=== PATIENT | female | born 1960 | race Caucasian/White ===

== ENCOUNTER 2018-08-02 10:03 | Observation (INO) ==
[2018-08-02] MEDS ORDERED: Aspirin 81 MG TAB.CHEW PO ONE (10:17)
[2018-08-02] MEDS ORDERED: 0.9 % Sodium Chloride 500 ML IVC ONE (10:17)
--- NOTE | 2018-08-02 10:25 | Emergency Department Note ---
Disposition Clinical Impression: Chest pain Qualifiers: Chest pain type: unspecified Qualified Code(s): R07.9 - Chest pain, unspecified Disposition: Admitted As Inpatient Condition: Fair Forms: ED Satisfaction Letter Time of Disposition: 12:14 Chest Pain HPI - General Chief Complaint: ED Chest Pain Stated Complaint: CP Time Seen by Provider: 08/02/18 10:07 Source: EMS Mode of arrival: EMS Limitations: no limitations Vital Signs Reviewed: Yes Nursing Notes Reviewed: Yes - History of Present Illness HPI Narrative: Patient presents emergency room by EMS for evaluation of intermittent chest pain. Patient was seen at her PCPs office today and advised to come to the emergency room because of the chest pain. She has no specific cardiac history but does have elevated blood pressure and alcohol abuse. No other acute complaints or symptoms on arrival here. Pt complaint: chest pain Onset (ago): day(s) Duration: intermittent Onset: during rest Pain Location: substernal Severity scale (1-10): 0 Quality: tightness, heaviness Pain Radiation: none Improves with: nothing Worsens with: movement Treatments prior to arrival chest pain: aspirin - Related Data Home Medications Medication Instructions Recorded Confirmed ALPRAZolam [Xanax 0.5 MG Tablet] 0.25 - 0.5 mg PO BID PRN 01/19/18 01/19/18 Aspirin [Lo-Dose Aspirin EC] 81 mg PO DAILY 01/19/18 01/19/18 Metoprolol Succinate [Toprol Xl] 25 mg PO DAILY 01/19/18 01/19/18 Valsartan/Hydrochlorothiazide 1 tab PO DAILY 01/19/18 01/19/18 [Diovan Hct 320-25 mg Tablet] cloNIDine HCl [CloNIDine HCl] 0.1 mg PO BID PRN 01/19/18 01/19/18 Previous Rx's Medication Instructions Recorded OxyCODONE Immed Rel [Roxicodone 5 5 mg PO Q6HR PRN 7 Days #30 tablet 01/20/18 MG] Allergies Allergy/AdvReac Type Severity Reaction Status Date / Time No Known Allergies Allergy Verified 01/19/18 07:18 All systems ED: reviewed and negative except as stated. Review of Systems: As Per HPI Constitutional: Denies: fever, chills, weakness ENT ED: Denies: ear pain, congestion Cardiovascular: Reports: chest pain. Denies: palpitations, dyspnea on exertion, orthopnea, edema Respiratory: Denies: cough, dyspnea, wheezes, hemoptysis Gastrointestinal: Denies: abdominal pain, nausea, vomiting, diarrhea, constipa tion Chest Pain PMH - Past Medical History Medical history: Reports: hypertension Psychiatric history: Reports: anxiety, depression - Social History Smoking Status: Former smoker Alcohol use: Reports: heavy Drug use: Reports: none Physical Exam - General Limitations: no limitations General appearance: alert, in no apparent distress - ENT ENT exam: normal exam, normal oropharynx, mucous membranes moist - Neck Neck exam: Present: normal inspection, full ROM, trachea midline. Absent: tenderness - Chest Chest inspection: Present: normal inspection, symmetric chest wall rise. Absent: tenderness - Respiratory Respiratory exam: Present: normal lung sounds bilaterally. Absent: respiratory distress, accessory muscle use - Cardiovascular Cardiovascular exam: Present: regular rate, normal rhythm, normal heart sounds - Abdominal Exam Abdominal exam: Present: soft, Non-Tender. Absent: tenderness, distention, guarding, rebound, rigidity - Extremities Exam Extremities exam: Present: normal inspection, full ROM - Back Exam Back exam: Present: normal inspection, full ROM. Absent: tenderness, CVA tenderness (R), CVA tenderness (L) - Neurological Exam Neurological exam: Present: alert, oriented X3, CN II-XII intact, normal gait - Skin Skin exam: Present: warm, dry, intact, normal color Course Course Narrative: Patient seen and examined the time of arrival. See history of present illness. 57-year-old female presents from her primary care provider's office for evaluation of intermittent chest discomfort and pain. During her evaluation this morning the patient was having pain. She also had poorly controlled hypertension at that time. Patient had nonspecific T-wave abnormalities noted on her EKG in the provider recommended she come to the emergency room for evaluation. On arrival here to the emergency room, the patient is denying chest pain shortness of breath headache or vision change. She does not have any nausea vomiting or diarrhea. No fevers no chills. Denies any falls trauma or injury. She does have a history of smoking but has not smoked in several years. She does take alcohol daily. Denies any substance abuse. Currently denying any specific cardiac history. Vital signs in triage show a significantly elevated blood pressure. She did take her clonidine prior to coming in. Heart rate is normal. Respirations are easy and unlabored. Head is atraumatic. Oropharynx is patent. Trachea is midline. Lungs are clear heart is regular. Abdomen is soft nontender nondistended with no pulsatile masses or lesions. Extremities are normal with no signs of pitting edema or swelling. Patient is otherwise clinical stable. Cardiac evaluation will be established with EKG chest x-ray CBC chemistry and troponin. Patient will be provided with aspirin while here. Currently, she is asymptomatic and does not require any immediate intervention. She is advised that if her symptoms return or change she should let us know so we can complete a repeat EKG and evaluate. Patient is otherwise clinically stable. Family is with her at the bedside and understands the recommended treatment course and projected course of care. EKGs from the primary care provider's office were reviewed as well as repeat EKGs performed here in the emergency department. - Reevaluation(s) Reevaluation #1: Patient's troponin and EKG are otherwise unremarkable. EKG from the primary care provider's office as well as a previous EKG were reviewed and do not show any acute morphology changes or signs of myocardial infarction. Patient is go ing to accommodate an admission at this time for ACS evaluation rule out. Patient is comfortable this plan. The hospitalist and I reviewed the case at length. She does not need any other intervention outside of aspirin at this time. Patient is otherwise currently stable with no symptoms at this time. Patient will be admitted for observation symptomatically control. We will monitor here in the emergency department to the admission process is completed. Time: 12:13 Vital Signs Temperature 98.3 F 08/02/18 10:06 Pulse Rate 62 08/02/18 10:06 Respiratory Rate 18 08/02/18 10:06 Blood Pressure 206/79 08/02/18 10:06 O2 Sat by Pulse Oximetry 96 08/02/18 10:06 Temperature 98.3 F 08/02/18 10:06 Pulse Rate 62 08/02/18 10:06 Respiratory Rate 18 08/02/18 10:06 Blood Pressure 206/79 08/02/18 10:06 O2 Sat by Pulse Oximetry 96 08/02/18 10:06 Oxygen Delivery Oxygen Delivery Room Air Chest Pain - MDM Narrative Medical decision making narrative: Chest pain, acute coronary syndrome - Medical Records Medical records reviewed: Yes I reviewed the patient's medical records. - Lab Data Lab results reviewed: Yes I reviewed the patient's lab results. Result diagrams: 08/02/18 10:12 08/02/18 10:12 Lab Results 08/02/18 08/02/18 08/02/18 Range/Units 10:12 10:12 10:12 WBC 6.6 (4.3-11.1) K/mcL RBC 5.01 H (3.82-4.97) M/mcL Hgb 15.6 H (11.5-15.4) g/dL Hct 47.2 H (35.3-44.9) % MCV 94.2 (83.0-100.0) fL MCH 31.1 (28.0-33.3) pg MCHC 33.1 (31.6-35.5) g/dL RDW 13.0 (11.5-14.5) % Plt Count 293 (140-400) K/mcL MPV 9.4 (9.4-12.4) fL Immature Gran % 0.3 (0-4) % Seg Neutrophils % 60.4 % Lymphocytes % 27.6 % Monocytes % 9.1 % Eosinophils % 1.8 % Basophils % 0.8 % Neutrophils # 4.0 (1.6-8.9) K/mcL Lymphocytes # 1.8 (0.6-4.6) K/mcL Monocytes # 0.6 (0.0-1.3) K/mcL Eosinophils # 0.1 (0.0-0.6) K/mcL Basophils # 0.1 (0.0-0.2) K/mcL PT 10.0 (9.4-12.1) Seconds INR 0.9 APTT 32.9 (26.0-36.0) Seconds Sodium (136-145) mEq/L Potassium (3.5-5.1) mEq/L Chloride (98-107) mEq/L Carbon Dioxide (23-29) mEq/L BUN (6-20) mg/dL Creatinine (0.60-1.20) mg/dL Est GFR ( Amer) (> 60) Est GFR (Non-Af Amer) (> 60) BUN/Creatinine Ratio (6-26) Glucose (70-105) mg/dL Calculated Osmolality (280-300) Calcium (8.6-10.3) mg/dL Troponin I (< 0.04) ng/mL B-Natriuretic Peptide 95 (Less than 100) pg/mL Urine Color (Yellow) Urine Clarity (Clear) Urine pH (5.0-8.0) pH Units Ur Specific Felt (1.010-1.025) Urine Protein (Neg-Trace) mg/dL Urine Glucose (UA) (Normal) mg/dL Urine Ketones (Negative) mg/dL Urine Blood (Negative) Urine Nitrite (Negative) Urine Bilirubin (Negative) Urine Urobilinogen (Normal) mg/dL Ur Leukocyte Esterase (Negative) Ur Culture Indicated? (NO) 08/02/18 08/02/18 Range/Units 10:12 11:07 WBC (4.3-11.1) K/mcL RBC (3.82-4.97) M/mcL Hgb (11.5-15.4) g/dL Hct (35.3-44.9) % MCV (83.0-100.0) fL MCH (28.0-33.3) pg MCHC (31.6-35.5) g/dL RDW (11.5-14.5) % Plt Count (140-400) K/mcL MPV (9.4-12.4) fL Immature Gran % (0-4) % Seg Neutrophils % % Lymphocytes % % Monocytes % % Eosinophils % % Basophils % % Neutrophils # (1.6-8.9) K/mcL Lymphocytes # (0.6-4.6) K/mcL Monocytes # (0.0-1.3) K/mcL Eosinophils # (0.0-0.6) K/mcL Basophils # (0.0-0.2) K/mcL PT (9.4-12.1) Seconds INR APTT (26.0-36.0) Seconds Sodium 135 L (136-145) mEq/L Potassium 4.1 (3.5-5.1) mEq/L Chloride 102 (98-107) mEq/L Carbon Dioxide 27 (23-29) mEq/L BUN 16 (6-20) mg/dL Creatinine 0.63 (0.60-1.20) mg/dL Est GFR ( Amer) > 60 (> 60) Est GFR (Non-Af Amer) > 60 (> 60) BUN/Creatinine Ratio 25 (6-26) Glucose 110 H (70-105) mg/dL Calculated Osmolality 282 (280-300) Calcium 9.3 (8.6-10.3) mg/dL Troponin I < 0.03 (< 0.04) ng/mL B-Natriuretic Peptide (Less than 100) pg/mL Urine Color Yellow (Yellow) Urine Clarity Clear (Clear) Urine pH 6.0 (5.0-8.0) pH Units Ur Specific Felt 1.010 (1.010-1.025) Urine Protein Negative (Neg-Trace) mg/dL Urine Glucose (UA) Normal (Normal) mg/dL Urine Ketones Negative (Negative) mg/dL Urine Blood Negative (Negative) Urine Nitrite Negative (Negative) Urine Bilirubin Negative (Negative) Urine Urobilinogen Normal (Normal) mg/dL Ur Leukocyte Esterase Negative (Negative) Ur Culture Indicated? NO (NO) - Radiology Data Radiology results reviewed: Yes I reviewed the patient's radiology results. Chest x-ray is unremarkable for acute etiology - EKG Data EKG attestation: Yes I reviewed and interpreted this EKG. EKG results narrative: EKG shows sinus rhythm. Heart rate of 54. CT interval 182. QRS duration of 93. QTC of 417. [place] appears to be normal. No acute signs of ST segment el evation or abnormality. No visible signs of acute hyperacute T waves. No acute signs of WPW or Brugada syndrome. Compared EKG on 01/12/18 with similar morphology with downward slope ST-T segment in leads 1 aVL V5 and V6. No other acute reciprocal changes noted. Heart Score - Score History: Slightly Suspicious EKG: Non Specific repolarisation Disturbance Age: 45-65 Risk Factors: 1-2 risk factors Troponin: Less than normal limit HEART Score Total: 3
[2018-08-02 10:45] LABS: Basophils # 0.1 K/mcL (0.0-0.2); Basophils % 0.8 %; Eosinophils # 0.1 K/mcL (0.0-0.6); Eosinophils % 1.8 %; Hematocrit 47.2 % (35.3-44.9); Hemoglobin 15.6 g/dL (11.5-15.4); Immature Granulocytes % 0.3 % (0-4); Lymphocytes # 1.8 K/mcL (0.6-4.6); Lymphocytes % 27.6 %; Mean Corpuscular HGB Conc 33.1 g/dL (31.6-35.5); Mean Corpuscular Hemoglobin 31.1 pg (28.0-33.3); Mean Corpuscular Volume 94.2 fL (83.0-100.0); Mean Platelet Volume 9.4 fL (9.4-12.4); Monocytes # 0.6 K/mcL (0.0-1.3); Monocytes % 9.1 %; Platelet Count 293 K/mcL (140-400); Red Blood Count 5.01 M/mcL (3.82-4.97); Segmented Neutrophils % 60.4 %
[2018-08-02 10:55] LABS: INR 0.9
[2018-08-02 10:58] LABS: Activated Partial Thrombo Time 32.9 Seconds (26.0-36.0)
[2018-08-02 11:05] LABS: BUN/Creatinine Ratio 25 (6-26); Blood Urea Nitrogen 16 mg/dL (6-20); Calcium 9.3 mg/dL (8.6-10.3); Carbon Dioxide 27 mEq/L (23-29); Chloride 102 mEq/L (98-107); Glucose 110 mg/dL (70-105); Osmolality,Calculated 282 (280-300); Potassium 4.1 mEq/L (3.5-5.1); Sodium 135 mEq/L (136-145); Troponin I < 0.03 ng/mL (< 0.04); eGFR For Non-African Americans > 60 (> 60)
[2018-08-02 11:12] LABS: Bilirubin,Urine Negative (Negative); Blood,Urine Negative (Negative); Clarity,Urine Clear (Clear); Color,Urine Yellow (Yellow); Glucose,Urine (UA) Normal (Normal); Ketones,Urine Negative (Negative); Leukocyte Esterase,Urine Negative (Negative); Nitrite,Urine Negative (Negative); Protein,Urine Negative (Neg-Trace); Urobilinogen,Urine Normal (Normal)
[2018-08-02] MEDS ORDERED: Naloxone 0.4 MG/ML INJ IVP PRN (14:16)
[2018-08-02] MEDS ORDERED: ALPRAZolam 0.5 MG TABLET PO PRN (14:20)
--- NOTE | 2018-08-02 16:24 | Internal Med History&Physical ---
Date of Encounter: 08/02/18 Time of Encounter: 11:00 Internal Medicine - H&P: HPI Chief complaint: Chest pain Admitted From: Home Plans for Post Hospital Care: Home History of present illness: Patient is a 57-year-old female with past medical history significant for generalized anxiety disorder and hypertension who presents secondary to chest pain. Patient reports of substernal chest tightness for approximately one month which last for minutes without any provoking or relieving factor which radiates to her right jaw. Patient denied any associated symptoms of shortness of breath, nausea/vomiting or diaphoresis. The intensity of her symptoms have increased so she decided to come to the ER for evaluation. Past Med Surg Social Fam HX - Past Medical History Medical history: hypertension Psychiatric history: anxiety, depression - Past Surgical History Surgical History: non-contributory - Social History Smoking Status: Former smoker Smokeless Tobacco Status: No Alcohol use: heavy Drug use: none - Family History Father Hx Family Cancer: Yes Internal Medicine - H&P: Meds ALPRAZolam [Xanax 0.5 MG Tablet] 0.25 mg PO BID PRN 01/19/18 [History] Aspirin [Lo-Dose Aspirin EC] 81 mg PO DAILY 01/19/18 [History] Metoprolol Succinate [Toprol Xl] 25 mg PO DAILY 01/19/18 [History] Valsartan/Hydrochlorothiazide [Diovan Hct 320-25 mg Tablet] 0.5 tab PO DAILY 01/19/18 [History] cloNIDine HCl [CloNIDine HCl] 0.1 mg PO BID PRN 01/19/18 [History] OxyCODONE Immed Rel [Roxicodone 5 MG] 5 mg PO Q6HR PRN 7 Days #30 tablet 01/20/18 [Rx] Allergy/AdvReac Type Severity Reaction Status Date / Time No Known Allergies Allergy Verified 01/19/18 07:18 All Systems PM: A 10-system review of systems was performed and is negative for pertinent findings except as documented above in the HPI. - Constitutional Vitals: Temp Pulse Resp BP Pulse Ox 97.8 F 55 13 118/57 95 08/02/18 15:05 08/02/18 15:05 08/02/18 15:05 08/02/18 15:05 08/02/18 15:05 Exam: General appearance: Present: A&O X 3, no acute distress - Head Head exam: Present: normocephalic - Eye Eye exam: Present: normal appearance - ENT ENT exam: Present: mucous membranes moist - Respiratory Respiratory exam: Present: CTAB. Absent: accessory muscle use, rales, rhonchi, wheezes - Cardiovascular Cardiovascular exam: Present: RRR, +S1, +S2. Absent: diastolic murmur, gallop, rubs, systolic murmur - GI/Abdominal GI/Abdominal exam: Present: normal bowel sounds, soft, no peritoneal signs. Absent: distended, tenderness - Extremities Exam Extremities exam: Absent: pedal edema - Neurological Exam Neurological exam: Present: alert, oriented X3, no focal deficits. Absent: altered - Psychiatric Psychiatric exam: -normal mood Skin exam: -normal color Internal Med - H&P Results - Labs CBC & Chem 7: 08/02/18 10:12 08/02/18 10:12 Labs: Short CBC 08/02/18 Range/Units 10:12 WBC 6.6 (4.3-11.1) K/mcL Hgb 15.6 H (11.5-15.4) g/dL Hct 47.2 H (35.3-44.9) % Plt Count 293 (140-400) K/mcL Neutrophils # 4.0 (1.6-8.9) K/mcL BMP 08/02/18 10:12 Sodium 135 L Potassium 4.1 Chloride 102 Carbon Dioxide 27 BUN 16 Creatinine 0.63 Glucose 110 H Calcium 9.3 Cardiac Enzymes 08/02/18 Range/Units 10:12 Troponin I < 0.03 (< 0.04) ng/mL Urine 08/02/18 Range/Units 11:07 Urine Color Yellow (Yellow) Urine Clarity Clear (Clear) Urine pH 6.0 (5.0-8.0) pH Units Ur Specific [place] 1.010 (1.010-1.025) Urine Protein Negative (Neg-Trace) mg/dL Urine Glucose (UA) Normal (Normal) mg/dL - Impressions ITS Impressions Chest X-Ray 08/02/18 10:17 IMPRESSION: No acute process. D/ / Jerry Perez MD / Jerry Perez MD Interpreting Provider: Jerry Perez MD - Assessment and Plan (1) Chest pain Current Visit: Yes Status: Acute Assessment and plan: Patient resents with a one-month history of intermittent substernal chest pain which is gradually gotten worse. First set of troponins negative Will trend serial troponins and monitor on telemetry Will also order echocardiogram Qualifiers: Chest pain type: unspecified Qualified Code(s): R07.9 - Chest pain, unspecified (2) DIANE (generalized anxiety disorder) Current Visit: Yes Status: Acute Assessment and plan: Continue home medications (3) DVT prophylaxis Current Visit: Yes Status: Acute Assessment and plan: Subcutaneous heparin - Time Spent With Patient Total time spent is greater than 50% in coordination of care (as documented) at patient's floor/unit and/or counseling patient:
[2018-08-02] MEDS: *HR* Heparin 5,000 UNIT/ML VIAL SQ SCH (21:16)
[2018-08-03 04:08] LABS: Basophils % 0.5 %; Eosinophils # 0.1 K/mcL (0.0-0.6); Eosinophils % 1.8 %; Hematocrit 44.3 % (35.3-44.9); Hemoglobin 14.5 g/dL (11.5-15.4); Immature Granulocytes % 0.2 % (0-4); Lymphocytes # 2.3 K/mcL (0.6-4.6); Lymphocytes % 37.1 %; Mean Corpuscular HGB Conc 32.7 g/dL (31.6-35.5); Mean Corpuscular Volume 94.7 fL (83.0-100.0); Mean Platelet Volume 9.3 fL (9.4-12.4); Monocytes # 0.6 K/mcL (0.0-1.3); Monocytes % 9.6 %; Neutrophils # 3.1 K/mcL (1.6-8.9); Platelet Count 268 K/mcL (140-400); Red Blood Count 4.68 M/mcL (3.82-4.97); Segmented Neutrophils % 50.8 %
[2018-08-03] MEDS ORDERED: hydroCHLOROthiazide 25 MG TABLET PO SCH ×2 (04:20→09:00)
[2018-08-03 04:22] LABS: BUN/Creatinine Ratio 23 (6-26); Blood Urea Nitrogen 15 mg/dL (6-20); Calcium 8.9 mg/dL (8.6-10.3); Carbon Dioxide 27 mEq/L (23-29); Chloride 107 mEq/L (98-107); Glucose 108 mg/dL (70-105); Osmolality,Calculated 291 (280-300); Potassium 4.1 mEq/L (3.5-5.1); Sodium 140 mEq/L (136-145); eGFR For Non-African Americans > 60 (> 60)
[2018-08-03] MEDS: *HR* Heparin 5,000 UNIT/ML VIAL SQ SCH (05:07)
[2018-08-03] MEDS ORDERED: Valsartan 160 MG TABLET PO SCH (09:00)
[2018-08-03] MEDS ORDERED: Metoprolol XL (24 HR) Succ 50 MG TAB.ER.24H PO SCH (09:00)
[2018-08-03] MEDS ORDERED: Aspirin Enteric Coated 81 MG Tablet PO SCH (09:00)
[2018-08-03] MEDS ORDERED: Regadenoson 0.4 MG/5 ML SYRINGE IVP ONE (09:18)
[2018-08-03 11:06] VITALS: BP 199/80
--- NOTE | 2018-08-03 11:39 | Discharge Summary ---
- NOTES TO OUTPATIENT PROVIDER Notes to Outpatient Provider: f/u with PCP in one week. Orders not resulted at time of discharge: Pending orders 08/03/18 08:39 NM da perf SPECT multi [NM] Routine SP exercise nuclear stress Routine Date of Encounter: 08/03/18 Time of Encounter: 11:36 - Discharge Diagnosis (1) Chest pain Priority: Primary Status: Acute Qualifiers: Chest pain type: unspecified Qualified Code(s): R07.9 - Chest pain, unspecified (2) Hypertension Priority: Secondary Status: Acute Qualifiers: Hypertension type: essential hypertension Qualified Code(s): I10 - Essential (primary) hypertension (3) DIANE (generalized anxiety disorder) Priority: Secondary Status: Acute (4) DVT prophylaxis Priority: Secondary Status: Acute Hospital course: Ms. Gray is a 57 year old female with a known past medical history of hypertension, generalized anxiety disorder and former smoker patient presented to ER with sub sternal intermittent chest tightness from last one month. Her CP is 6/10 in severity and non radiating. She was admitted in the hospital and placed on garbage person. Her serial troponin came back as negative. No acute ischemic changes noticed on EKG. Since patient is high risk for ACS she did go for nuclear stress test which came back as negative for ischemia or infarct. Will d/c her home in stable condition. - Time Spent with Patient Total time spent providing and/or coordinating discharge services: - Discharge Medications Prescriptions: Continue RX: ALPRAZolam [Xanax 0.5 MG Tablet] 0.25 mg PO BID PRN PRN Reason: Anxiety RX: Valsartan/Hydrochlorothiazide [Diovan Hct 320-25 mg Tablet] 0.5 tab PO DAILY RX: Metoprolol Succinate [Toprol Xl] 25 mg PO DAILY RX: Aspirin [Lo-Dose Aspirin EC] 81 mg PO DAILY RX: Melatonin 5 mg PO HS Home Medications: RX: ALPRAZolam [Xanax 0.5 MG Tablet] 0.25 mg PO BID PRN 01/19/18 [History] RX: Aspirin [Lo-Dose Aspirin EC] 81 mg PO DAILY 01/19/18 [History] RX: Metoprolol Succinate [Toprol Xl] 25 mg PO DAILY 01/19/18 [History] RX: Valsartan/Hydrochlorothiazide [Diovan Hct 320-25 mg Tablet] 0.5 tab PO DAILY 01/19/18 [History] RX: Melatonin 5 mg PO HS 08/02/18 [History] Allergies/Adverse Reactions: Allergy/AdvReac Type Severity Reaction Status Date / Time No Known Allergies Allergy Verified 08/02/18 18:27 Date of admission: 08/02/18 11:37 Primary care physician: Seb Madison MD - Constitutional Vitals: Temp Pulse Resp BP Pulse Ox 98.1 F 60 19 199/80 95 08/03/18 10:48 08/03/18 10:48 08/03/18 10:48 08/03/18 10:48 08/03/18 10:48 General appearance: Present: A&O X 3, no acute distress, answers questions appropriately Exam: Gen: Alert, awake, Oriented to time,place and person Chest: Diminished breath sounds B/L, No wheezing, No crackles, No rales Heart: S1S2+ RRR No murmurs Abd: Soft, NT, BS +, No organomegaly Ext: No edema, pulses are palpable, No calf tenderness Neuro : Benign findings Skin: No rash. - Patient Status Disposition: Home, Self-Care Condition: Good Overall status at discharge: patient is back to baseline - Discharge Instructions Instructions: Angina (DC), Heart Healthy Diet (DC) Follow Up With: Seb Madison MD [Primary Care Provider] - 08/11/18 2:00 pm Additional Instructions: Follow-up appointments: If there is not an appointment listed below, please call your physician and schedule a follow-up appointment. If you have congestive heart failure and your symptoms return, make an appointment with your physician. Medication List: Carry an up to date list of medications you are taking at all time. We have given you an updated medication list including any new medications that you have been prescribed. Please provide that list to your primary provider Symptoms: If your condition changes or you experience any of the following symptoms, notify your physician immediately: Unusual or worsening pain, fever, persistent nausea and vomiting, bleeding, inc rease in swelling (especially in your legs), sudden weight gain, extreme dizziness, chest pain, increased drainage or redness from a wound or incision. Go to the emergency department if you experience a problem with breathing. Weights: If you have a history of swelling or shortness of breath, weigh yourself daily and notify your physician if you have a weight gain of two or more pounds in one day or 5 or more pounds in a week. If you experience any of the warning signs for stroke: Sudden numbness or weakness of the face, arm or leg; especially on one side of the body, sudden confusion, trouble speaking or understanding, sudden trouble seeing in one or both eyes, sudden trouble walking, dizziness, loss of balance or coordination, sudden sever headache with no cause; Call 911 or go to the emergency room. Stroke is a medical emergency. Some risk factors for stroke: Age, cigarette smoking, diabetes, excessive alcohol consumption, family history, high blood pressure, overweight, physical inactivity, prior stroke, heart attack, diagnosis of carotid artery stenosis or other artery disease. If you smoke, STOP: Smoking or tobacco use significantly increases your risk of heart and lung disease. Your chance of disease greatly increases if you continue to smoke. For more information, call the [place] tobacco quit line for smoking cessation 1-646-FBGR-NOW ( ) - Diet and Activity Activity: increase activity as tolerated Diet: low salt diet
--- NOTE | 2018-08-03 17:57 | Electrocardiograph Report ---
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
== END 2018-08-03 15:52 | disposition home or self-care (01) ==
LOC: 3BNU 10:03 → EMEROOARM 10:03 → SUATTDRO 11:37 → 3BNU 12:27
PROVIDERS: ADMIT Hospitalist; ATTEND Family Medicine